=== PATIENT | female | born 1960 | race Caucasian/White ===

== ENCOUNTER → 2017-03-16 | Outpatient (CLI) | payer BC ==
[2017-03-16 12:13] LABS: URINE APPEARANCE CLEAR (CLEAR); URINE BILIRUBIN NEG (NEG); URINE COLOR YELLOW; URINE NITRITE NEG (NEG); URINE PH 5.5 (4.5-7.5); UROBILINOGEN NEG (NEG)
[2017-03-16 12:37] LABS: MANUAL MICROSCOPIC REQUIRED? NO; REVIEW REQ? NO
== END | disposition home or self-care (01) ==
LOC: C.LABSPEC 11:28
PROVIDERS: ATTEND Obstetrics & Gynecology
DX: N94.89 Other specified conditions associated with female genital organs and menstrual cycle (principal)

== ENCOUNTER → 2017-04-01 | Outpatient (CLI) | payer BC ==
--- NOTE | 2017-04-01 10:23 | DIAGNOSTIC IMAGING REPORT ---
[facility] CLINICAL HISTORY: PELVIC PRESSURE ABNORMAL URINALYSIS COMPARISON STUDY: No previous studies for comparison. FINDINGS: There is no pathologic bowel dilatation. There is scattered stool within the colon. There is a 7 mm calcification projected over the right renal shadow suspicious for a calculus. There are nonspecific pelvic basin calcifications, likely representing phleboliths. It is not possible to exclude a distal ureteral calculus. IMPRESSION: 1. Suspected 7 mm right renal calculus 2. Mild fecal retention. No evidence of pathologic bowel dilatation. Electronically signed by: Skip Jay M.D. 04/01/2017 10:21 AM Dictated Date/Time: 04/01/2017 10:20 AM
== END | disposition home or self-care (01) ==
LOC: C.RADBC 09:51
PROVIDERS: ATTEND Nurse Practitioner Family
DX: N94.89 Other specified conditions associated with female genital organs and menstrual cycle (principal); R82.90 Unspecified abnormal findings in urine